=== PATIENT | female | born 1965 | race Caucasian/White ===

== ENCOUNTER 2023-06-16 22:18 | Emergency (ER) | payer BC, MEDICARE, OTHER ==
[~2023-06-16] VITALS: Ht 160 cm; Wt 69.5 kg
[2023-06-16 22:19] VITALS: BP 133/84; TEMP 96.7; O2SAT 97
[2023-06-16] MEDS ORDERED: LEVO125T4 (22:30)
[2023-06-16] MEDS ORDERED: DULO1CAP6 (22:30)
[2023-06-16] MEDS ORDERED: PROP40TA62 (22:30)
[2023-06-16] MEDS ORDERED: OMEP-173 (22:30)
[2023-06-16] MEDS ORDERED: CEFD1CAP9 PO (23:20)
[2023-06-16] MEDS ORDERED: ONDA4TAB6 PO (23:20)
[2023-06-16] MEDS ORDERED: PYRI1TAB5 PO (23:20)
[2023-06-16] MEDS: ONDANSETRON 4MG ORAL DISINTEGRATING TAB PO ONE (23:27)
[2023-06-16] MEDS: CEFDINIR 300 MG CAP (OMNICEF) PO ONE (23:27)
[2023-06-16] MEDS: PHENAZOPYRIDINE 100 MG TAB PO ONE (23:27)
== END 2023-06-16 23:36 | disposition home or self-care (01) ==
LOC: M ED 22:18
DX: N39.0 Urinary tract infection, site not specified (principal); I10 Essential (primary) hypertension; K21.9 Gastro-esophageal reflux disease without esophagitis; F32.9 Major depressive disorder, single episode, unspecified; Z79.2 Long term (current) use of antibiotics; Z79.83 Long term (current) use of bisphosphonates; Z79.811 Long term (current) use of aromatase inhibitors; Z79.899 Other long term (current) drug therapy

== ENCOUNTER → 2025-01-29 | Outpatient (CLI) | payer OTHER ==
[~2025-01-29] MED LIST: ABIL1TAB11 PO; CEFD1CAP9 PO; CHOL25TA2 PO; DULO1CAP6 PO; FERR325T3 PO; LEVO125T4 PO; MULT-40 PO; OMEP-173 PO; ONDA-282 PO; PROP40TA62 PO; PYRI1TAB5 PO; TRAZ-252 PO; VITA-10 PO; VITA100018 PO
[2025-01-29 20:18] LABS: Trichomonas vaginalis (AMP) NOT DETECTED (NEGATIVE)
[2025-01-29 20:41] LABS: GC DNA AMPLIFICATION NEGATIVE (NEGATIVE)
[2025-01-31 12:56] LABS: HPV APTIMA Detected (Not Detected)
== END ==
LOC: M PLAIMG 14:29
PROVIDERS: ATTEND Nurse Practitioner Family
DX: M79.641 Pain in right hand (principal); Z11.3 Encounter for screening for infections with a predominantly sexual mode of transmission; Z12.4 Encounter for screening for malignant neoplasm of cervix
CPT/HCPCS: 73130; 87624; 87661; 87810; 87850; G0123